=== PATIENT | male | born 1975 ===

== ENCOUNTER 2019-02-25 18:23 | Emergency (ER) | payer SELFPAY ==
[2019-02-25] MEDS ORDERED: Naloxone 0.4 mg/ml Inj (Adult) ONE (18:35)
[2019-02-25] MEDS ORDERED: Naloxone 0.4 mg/ml Inj (Adult) IVP ONE (18:37)
--- NOTE | 2019-02-25 20:04 | C.PDOC ---
History Of Present Illness 43 y/o male pt presents to the ER by EMS due to being unresponsive. As per EMS, pt had pinpoint pupils. Pt was given narcan in ER and became alert and responsive. Pt admits to using IV heroin today. He denies any other associated sx or complaints at this time. Time Seen by Provider: 02/25/19 18:36 Chief Complaint (Nursing): Substance Abuse History Per: Patient, EMS History/Exam Limitations: no limitations Onset/Duration Of Symptoms: Hrs Current Symptoms Are (Timing): Still Present Modifying Factor(s): Other (heroin) Past Medical History Reviewed: Historical Data, Nursing Documentation, Vital Signs Vital Signs: Last Vital Signs Temp 98 F 02/25/19 18:38 Pulse 97 H 02/25/19 18:32 Resp 6 L 02/25/19 18:32 BP 107/75 02/25/19 18:32 Pulse Ox 92 L 02/25/19 18:32 Family History: States: No Known Family Hx - Social History Hx Alcohol Use: No Hx Substance Use: Yes - Immunization History Hx Tetanus Toxoid Vaccination: No Hx Influenza Vaccination: No Hx Pneumococcal Vaccination: No Review Of Systems Except As Marked, All Systems Reviewed And Found Negative. Constitutional: Positive for: Other (Heroin Overdose) Physical Exam - Physical Exam Appears: Non-toxic, No Acute Distress Skin: Normal Color, Warm, Dry Head: Atraumatic, Normacephalic Eye(s): bilateral: Normal Inspection, PERRL (pinpoint pupils ), EOMI Nose: Normal Oral Mucosa: Moist Chest: Symmetrical Cardiovascular: Rhythm Regular, No Murmur Respiratory: Normal Breath Sounds, No Rales, No Rhonchi, No Wheezing Gastrointestinal/Abdominal: Normal Exam, Soft, No Tenderness, No Distention Extremity: Normal ROM Extremity: Bilateral: Atraumatic, Normal Color And Temperature Neurological/Psych: Oriented x3, Normal Speech ED Course And Treatment O2 Sat by Pulse Oximetry: 92 (RA) Pulse Ox Interpretation: Normal Medical Decision Making Medical Decision Making: Assessment: Heroin overdose plans: -- narcan patient awake and ambulating in ED Will discharge home. Disposition Counseled Patient/Family Regarding: Studies Performed, Diagnosis - Disposition Disposition: HOME/ ROUTINE Disposition Time: 23:03 Condition: STABLE Additional Instructions: follow up with your doctor within 2 days call to make an appointment stop using drugs return to ER if symptoms worsens or progress Instructions: Drug Abuse and Drug Addiction (DC), Narcotic Overdose Forms: [facility] (Pashto), General Discharge Instructions - Clinical Impression Clinical Impression: Heroin abuse - Scribe Statement The provider has reviewed the documentation as recorded by the Scribe Henriquez Do Provider Attestation: All medical record entries made by the Scribe were at my direction and personally dictated by me. I have reviewed the chart and agree that the record accurately reflects my personal performance of the history, physical exam, medical decision making, and the department course for this patient. I have also personally directed, reviewed, and agree with the discharge instructions and disposition.
[2019-02-25 23:12] VITALS: BP 101/56; PULSE 86; RESP 20; TEMP 97.9
[2019-02-25 23:19] VITALS: O2SAT 92
== END 2019-02-25 23:14 | disposition home or self-care (01) ==
LOC: C.ER 18:23
DX: F11.10 Opioid abuse, uncomplicated (principal)
CPT/HCPCS: 96374; 99285; J2310